=== PATIENT | female | born 1960 | race Caucasian/White ===

== ENCOUNTER → 2018-09-23 | Outpatient (CLI) | payer BC ==
--- NOTE | 2018-09-23 18:41 | Diagnostic Imaging Report ---
INDICATION: Routine screening. Comparison is made with prior mammograms from 09/11/2014 and 09/05/2013. 2-D and 3-D bilateral screening mammography was performed with computer-aided detection (CAD) system. FINDINGS: Scattered fibroglandular densities are identified bilaterally. The parenchymal pattern is stable. No mass or malignant-appearing microcalcifications are seen. The axillae are remarkable. IMPRESSION: No mammographic features suspicious for malignancy are identified. ACR BI-RADS Category 1: Negative. Result letter will be mailed to the patient. Note: At least 10% of breast cancer is not imaged by mammography. Dictated by: Dictated on workstation # [id number]
== END ==
LOC: RAD 14:35
PROVIDERS: ATTEND Family Medicine
DX: Z12.31 Encounter for screening mammogram for malignant neoplasm of breast (principal)
CPT/HCPCS: 77067

== ENCOUNTER → 2020-07-23 | Outpatient (CLI) | payer BC ==
--- NOTE | 2020-07-23 19:53 | Diagnostic Imaging Report ---
EXAM: Digital mammogram, bilateral screening. COMPARISONS: 09/23/2018, 09/11/2014 and 09/05/2013. There are no current complaints. History: Routine screening Technique: Bilateral 3d digital tomographic views were obtained with [employer] and reviewed on a Animated [employer] workstation. In addition, CAD - computer aided detection was utilized. Findings: Breast Tissue Density B : The breast tissue is composed of mixed fatty and fibroglandular tissue. There are no suspicious masses, microcalcifications or areas of architectural distortion. Impression: No suspicious findings. BI-RADS Category 1: Negative. ACR BI-RADS Category 1: Negative. Result letter will be mailed to the patient. Note: At least 10% of breast cancer is not imaged by mammography. Normal interval followup. The patient will receive a letter with the results in the mail. A mammogram does not have 100% sensitivity and therefore a negative imaging study should not delay further work up of a suspicious abnormality. Patient information is entered into the [facility] reminder system using [employer] with a target due date for the next screening mammogram. The patient will receive a reminder. "Our facility is accredited by the [employer] Mammography Program." Dictated on workstation # [id number]
== END ==
LOC: RAD 14:23
PROVIDERS: ATTEND Family Medicine
DX: Z12.31 Encounter for screening mammogram for malignant neoplasm of breast (principal)
CPT/HCPCS: 77063; 77067

== ENCOUNTER → 2020-07-23 | Outpatient (CLI) | payer BC ==
--- NOTE | 2020-07-23 15:49 | Diagnostic Imaging Report ---
CT Lung Screening INDICATION: 72-uvbm-yhos smoking history. TECHNIQUE: Noncontrast, low-dose CT imaging performed according to the lung cancer screening protocol. Auto Exposure Controls were utilize during the CT exam to meet ALARA standards for radiation dose reduction. COMPARISON: There are no prior studies available for comparison. FINDINGS: There is a 6.6 mm belkis-fissural nodule in the left midlung (image 105, series 2). This does not have an aggressive appearance. Even so, a six-month follow-up CT low-dose lung cancer screening exam would be recommended for further study. There is no parenchymal lung mass identified otherwise. There are emphysematous changes involving both lungs. There is no sign of failure, pneumonia or pleural effusion to indicate an acute cardiopulmonary abnormality. The heart size is at the upper limits of normal and there are coronary artery calcifications evident. The aorta is not abnormally dilated. There is no obvious mediastinal or hilar adenopathy. The thyroid gland where visualized is unremarkable. There is no sign of a breast mass. The images through the upper abdomen failed to show any evidence for an acute abnormality. There is a 2.7 x 3.1 cm hiatal hernia. IMPRESSION: 1. There is a 6.6 mm belkis-fissural nodule in the left midlung. A six-month follow-up exam would be recommended for continued evaluation. 2. There is no other parenchymal lung nodules identified. 3. There are emphysematous changes involving both lungs. There is no sign of an acute cardiopulmonary abnormality. 4. There is borderline cardiomegaly and coronary artery disease. 5. There is a hiatal hernia. LUNG-RADS CATEGORY: 3 MODIFIER: OTHER SIGNIFICANT FINDINGS: Dictated by: Dictated on workstation # [id number]
== END ==
LOC: RAD 14:25
PROVIDERS: ATTEND Nurse Practitioner Family
DX: Z12.2 Encounter for screening for malignant neoplasm of respiratory organs (principal); J43.9 Emphysema, unspecified; I25.10 Atherosclerotic heart disease of native coronary artery without angina pectoris; K44.9 Diaphragmatic hernia without obstruction or gangrene; R91.1 Solitary pulmonary nodule

== ENCOUNTER 2020-09-14 05:42 | Outpatient (RCR) | payer BC ==
[~2020-09-14] VITALS: Ht 157 cm; Wt 72.7 kg
[~2020-09-14 05:42] MED LIST: ESCI20TA PO; ESTR0.5T PO; PROG100C11 PO
== END 2020-09-14 09:31 | disposition home or self-care (01) ==
LOC: PREOP 05:42
PROVIDERS: ATTEND Surgery
DX: Z01.818 Encounter for other preprocedural examination (principal); Z20.828 Contact with and (suspected) exposure to other viral communicable diseases
CPT/HCPCS: 87635

== ENCOUNTER 2020-09-18 10:08 | Day surgery (SDC) | payer BC ==
[~2020-09-18] VITALS: Ht 157 cm; Wt 72.7 kg
[2020-09-18] VITALS (9 sets, daily range): BP systolic 95–151; BP diastolic 52–88
[2020-09-18] MEDS ORDERED: LACTATED RINGERS 1,000 ML IV ONE (10:11)
[2020-09-18] MEDS ORDERED: LACTATED RINGERS 1,000 ML IV STA (10:17)
[2020-09-18] MEDS ORDERED: PROPOFOL INJECTION 50 ML IV ONE (10:26)
[2020-09-18] MEDS ORDERED: MIDAZOLAM 2 MG/2 ML (VERSED) VIAL ONE (10:27)
--- NOTE | 2020-09-18 10:52 | Progress Note-Pre Operative ---
Pre-Operative Progress Note H&P Reviewed The H&P was reviewed, patient examined and no changes noted. Date Seen by Provider: Sep 18, 2020 Time Seen by Provider: 10:51 Date H&P Reviewed: Sep 18, 2020 Time H&P Reviewed: 10:51 Pre-Operative Diagnosis: +AMELIA Garcia DO Sep 18, 2020 10:52
--- NOTE | 2020-09-18 11:32 | Progress Note-Post Operative ---
Post-Operative Progess Note Surgeon (s)/Binder Cutter (s) Surgeon AMELIA ONTIVEROS DO Binder Cutter: na Pre-Operative Diagnosis +cologuard Post-Operative Diagnosis diverticulosis, sigmoid polyp, Procedure & Operative Findings Date of Procedure 09/18/20 Procedure Performed/Findings colonoscopy c cold biopsy polypectomy sigmoid polyp Anesthesia Type per cleaning staff supervisor Estimated Blood Loss Estimated blood loss (mL): none Specimens/Packing Specimens Removed sigmoid polyp AMELIA ONTIVEROS DO Sep 18, 2020 11:32
--- NOTE | 2020-09-18 11:33 | Discharge Inst-Simple/Standard ---
Discharge Inst-Standard Patient Instructions/Follow Up Plan of Care/Instructions/FU: 2 weeks Sherri Activity as Tolerated: Yes Discharge Diet: Regular Diet (high fiber) AMELIA ONTIVEROS DO Sep 18, 2020 11:33
--- NOTE | 2020-09-18 14:50 | Anesthesia-General Post-Op ---
MAC Patient Condition Mental Status/LOC: Same as Preop Cardiovascular: Satisfactory Nausea/Vomiting: Absent Respiratory: Satisfactory Pain: Controlled Complications: Absent Post Op Complications Complications None Follow Up Care/Instructions Patient Instructions None needed. Anesthesiology Discharge Order Discharge Order Patient is doing well, no complaints, stable vital signs, no apparent adverse anesthesia problems. No complications reported per nursing. MAURO CRESPO CRNA Sep 18, 2020 14:50
--- NOTE | 2020-09-18 16:13 | OPERATIVE REPORT ---
DATE OF SERVICE: 09/18/2020 PREOPERATIVE DIAGNOSIS: Positive Cologuard test. POSTOPERATIVE DIAGNOSES: Diverticulosis, small sigmoid polyp. SURGEON: Amelia Polanco DO. ANESTHESIA: Per [employer]. ESTIMATED BLOOD LOSS: None. COMPLICATIONS: None. PROCEDURE PERFORMED: Colonoscopy with cold biopsy polypectomy of sigmoid colon. INDICATIONS: The patient is a 59-year-old female with a positive Cologuard test. She understands risks and benefits of the procedure and wished to proceed with the procedure. Consent was signed in the chart. DESCRIPTION OF PROCEDURE: The patient was taken to the endoscopy suite and placed in a left lateral recumbent position. Timeout was performed. Digital rectal exam was performed. No palpable polyps, masses or ulcerations. Scope was inserted in the rectum, advanced all the way to cecum with minimal difficulty. Prep was adequate. Scope was then slowly retracted back. There were no polyps, masses or ulcerations in the cecum, ascending, transverse, descending colon and sigmoid colon, moderate amount of diverticulosis was present in the distal portion with a very small polyp, which cold biopsy polypectomy was performed. Scope was then continuously retracted back into the rectum, where it was also retroflexed noting no other pathology. The scope was then returned to its normal position, slowly withdrawn until completely removed. The patient tolerated the procedure well without any complications. She was taken to recovery room in stable condition. RECOMMENDATIONS: The patient will need repeat colonoscopy in 5 years. Any issues before that be seen at that time. Any change in bowel habits or any GI symptoms, would consider repeating a colonoscopy at that time. The patient will follow up on pathology in two weeks. Job ID: [id number] DocumentID: [id number] Dictated Date: 09/18/2020 11:36:05 Outreach Associate Date: 09/18/2020 16:12:40 Dictated By: AMELIA POLANCO DO
== END 2020-09-18 12:15 | disposition home or self-care (01) ==
LOC: ENDO 10:08
PROVIDERS: ATTEND Surgery
DX: K63.5 Polyp of colon (principal); K57.30 Diverticulosis of large intestine without perforation or abscess without bleeding; F32.9 Major depressive disorder, single episode, unspecified; F41.9 Anxiety disorder, unspecified; K21.9 Gastro-esophageal reflux disease without esophagitis; J44.9 Chronic obstructive pulmonary disease, unspecified; M06.9 Rheumatoid arthritis, unspecified; F17.210 Nicotine dependence, cigarettes, uncomplicated; Z79.899 Other long term (current) drug therapy
CPT/HCPCS: 88305

== ENCOUNTER → 2021-01-22 | Outpatient (CLI) | payer BC ==
--- NOTE | 2021-01-22 18:14 | Diagnostic Imaging Report ---
CT Lung Screening INDICATION:40 pack year smoking history. This is a 6 month follow-up of belkis-fissural nodule on the left. TECHNIQUE: Noncontrast, low-dose CT imaging performed according to the lung cancer screening protocol. Auto Exposure Controls were utilize during the CT exam to meet ALARA standards for radiation dose reduction. COMPARISON: 07/23/2020 FINDINGS: The 4 mm juxta fissural nodule in the left lower lung is unchanged, likely intramammary lymph node. No new dominant or suspicious lung mass. No findings of pneumonia. No thoracic adenopathy. No thoracic aneurysm. No effusion or pneumothorax. No acute chest wall pathology. Small hiatal hernia noted. The upper abdomen appeared unremarkable. IMPRESSION:Stable benign belkis-fissural intramammary lymph node, no suspicious mass. Return to annual low-dose CT screening follow-up recommended. LUNG-RADS CATEGORY:Category 2 MODIFIER:None OTHER SIGNIFICANT FINDINGS:None Dictated by: Dictated on workstation # [id number]
== END ==
LOC: RAD 16:15
PROVIDERS: ATTEND Family Medicine
DX: D36.0 Benign neoplasm of lymph nodes (principal); Z87.891 Personal history of nicotine dependence
CPT/HCPCS: 71271

== ENCOUNTER → 2022-07-29 | Outpatient (CLI) | payer BC ==
--- NOTE | 2022-07-29 12:55 | Diagnostic Imaging Report ---
INDICATION: Routine screening. COMPARISON: 07/23/2020 and 09/11/2014. TECHNIQUE: 2D and 3D bilateral screening mammography was performed with CAD. FINDINGS: Scattered fibroglandular densities are identified bilaterally. No mass or malignant-appearing microcalcifications are seen. The axillae are unremarkable. IMPRESSION: No mammographic features suspicious for malignancy are identified. ACR BI-RADS Category 1: Negative. Result letter will be mailed to the patient. Note: At least 10% of breast cancer is not imaged by mammography. Dictated by: Dictated on workstation # [id number]
--- NOTE | 2022-07-29 14:15 | Diagnostic Imaging Report ---
EXAMINATION: CT chest without contrast (lung screening). TECHNIQUE: Multiple contiguous axial images were obtained through the chest without the use of intravenous contrast according to lung cancer screening protocol. All CT scans use one or more of the following dose optimizing techniques: automated exposure control, MA and/or KvP adjustment based on patient size and exam type or iterative reconstruction. HISTORY: 41 pack year history of smoking. COMPARISON: 01/22/2021. FINDINGS: There is no edema or pneumonia. No pleural effusion. No pneumothorax. No suspicious nodules. There is a fissural lymph node along the left fissure. There is no axillary or supraclavicular lymphadenopathy. There is no mediastinal lymphadenopathy. Heart size is normal. There are no coronary artery calcifications. No pericardial effusion. Aorta is normal in caliber. Limited views of the upper abdomen are unremarkable. There are no suspicious osseous lesions. IMPRESSION: 1. No suspicious pulmonary nodules. LUNG-RADS CATEGORY: 2 MODIFIER: None. Dictated by: Dictated on workstation # [id number]
== END ==
LOC: RAD 09:01
PROVIDERS: ATTEND Family Medicine
DX: Z12.31 Encounter for screening mammogram for malignant neoplasm of breast (principal); Z87.891 Personal history of nicotine dependence
CPT/HCPCS: 71271; 77063; 77067